=== PATIENT | male | born 1995 | race Caucasian/White ===

== ENCOUNTER 2019-01-04 03:08 | Emergency (ER) | payer BC ==
[~2019-01-04] VITALS: Ht 182.9 cm; Wt 108.9 kg
[2019-01-04 05:53] VITALS: BP 119/66
== END 2019-01-04 05:55 | disposition home or self-care (01) ==
LOC: M.ERS 03:08
DX: R22.0 Localized swelling, mass and lump, head (principal); Y04.2XXA Assault by strike against or bumped into by another person, initial encounter; Y93.89 Activity, other specified; Y92.89 Other specified places as the place of occurrence of the external cause; Y99.8 Other external cause status